=== PATIENT | male | born 1990 | race Hispanic/Latino ===

== ENCOUNTER 2017-10-27 21:20 | Emergency (ER) | payer OTHER, SELFPAY ==
[2017-10-27 22:36] LABS: #Eosinphils 0.4 thou/uL (0.0-0.7); #Monocytes 0.5 thou/uL (0.11-0.59); #Neutrophils 4.3 thou/uL (1.40-6.50); %Basophils 0.2 % (0.0-1.0); %Eosinophils 5.3 % (0.0-10.0); %Lymphocytes 36.9 % (21.0-51.0); %Monocytes 5.7 % (0.0-10.0); Hemoglobin 12.1 g/dL (14.0-18.0); Mean Corpuscular HGB CONC 34.1 g/dL (32.0-36.0); Mean Corpuscular Hemoglobin 29.7 pg (27.0-31.0); Platelet Count 236 thou/uL (130-400); RBC Distribution Width 12.8 % (11.5-14.5); Red Blood Cell (RBC) Count 4.07 mill/uL (4.70-6.10); White Blood Cell (WBC) Count 8.2 thou/uL (4.8-10.8)
--- NOTE | 2017-10-27 22:37 | CT ---
HEAD CT WITHOUT CONTRAST: 10/27/17 COMPARISON: 03/21/16 HISTORY: Seizures, found unconscious. TECHNIQUE: Serial axial CT imaging at 5 mm intervals from the vertex through the skull base without contrast. FINDINGS: The imaged paranasal sinuses/mastoid air cells are well aerated. No displaced calvarial fracture is n oted. There is no intracranial hemorrhage, midline shift, or mass effect. IMPRESSION: No acute finding - stable head CT. If there is clinical concern for a seizure focus, a followup brain MRI is recommended. POS: [facility]
[2017-10-27 22:49] LABS: Glucose 128 mg/dL (70-105)
[2017-10-27 22:53] LABS: ALT (SGPT) 22 U/L (8-55); AST (SGOT) 23 U/L (5-34); Albumin 4.5 g/dL (3.5-5.0); Alkaline Phosphatase 103 U/L (40-150); Anion Gap 12 mmol/L (10-20); BUN (Urea Nitrogen) 17 mg/dL (8.9-20.6); Bilirubin, Total 0.2 mg/dL (0.2-1.2); CK (CPK) 121 U/L (30-200); Calc. Creatinine Clearance 0 mL/min (70-130); Calcium 9.5 mg/dL (7.8-10.44); Carbamazepine-Tegretol 4.2 ug/mL (4.0-12.0); Carbon Dioxide 26 mmol/L (22-29); Chloride 107 mmol/L (98-107); Estimated GFR-MDRD 79; Magnesium 2.2 mg/dL (1.6-2.6); Potassium 3.5 mmol/L (3.5-5.1); Protein, Total 7.5 g/dL (6.0-8.3); Sodium 141 mmol/L (136-145)
== END 2017-10-27 23:45 | disposition home or self-care (01) ==
LOC: ERS 21:20
DX: G40.909 Epilepsy, unspecified, not intractable, without status epilepticus (principal); F31.9 Bipolar disorder, unspecified; Z79.899 Other long term (current) drug therapy
CPT/HCPCS: 70450; 80053; 80156; 80178; 82550; 83735; 84443; 85025; 93005; 96360

== ENCOUNTER 2017-12-29 19:31 | Emergency (ER) | payer OTHER, SELFPAY | END 2017-12-29 21:44 | disposition home or self-care (01) | LOC: ERS 19:31 | DX: S60.222A Contusion of left hand, initial encounter (principal); F31.9 Bipolar disorder, unspecified; X58.XXXA Exposure to other specified factors, initial encounter | CPT/HCPCS: 99283 ==

== ENCOUNTER 2018-05-07 19:01 | Emergency (ER) | payer SELFPAY ==
[2018-05-07 19:43] LABS: Bilirubin Negative (Negative); Blood, Urine Moderate (Negative); Clarity CLEAR (Clear); Glucose, Urine (Dipstick) Negative (Negative); Leukocyte Negative (Negative); Nitrite Negative (Negative); Protein, Urine (Dipstick) Negative (Neg-Trace); Specific Gravity, Urine 1.009 (1.002-1.036); pH, Urine 6.5 (5.0-9.0)
[2018-05-07 19:46] LABS: Bacteria/HPF None Seen HPF (None Seen); Hyaline Casts/LPF 0-3 HYALINE CAST LPF (0-3 Hyaline); Pathc Cast-AUWi Flag 0.14 (0-2.49); Squamous Epithelial None Seen HPF (0-3); WBC/HPF None Seen HPF (0-3)
[2018-05-07 20:26] LABS: #Eosinphils 0.3 thou/uL (0.0-0.7); #Lymphocytes 2.7 thou/uL (1.20-3.40); #Monocytes 0.4 thou/uL (0.11-0.59); #Neutrophils 4.8 thou/uL (1.40-6.50); %Basophils 0.4 % (0.0-1.0); %Eosinophils 3.6 % (0.0-10.0); %Lymphocytes 32.9 % (21.0-51.0); Hemoglobin 12.3 g/dL (14.0-18.0); Mean Corpuscular HGB CONC 31.9 g/dL (32.0-36.0); Mean Corpuscular Hemoglobin 27.8 pg (27.0-31.0); Mean Corpuscular Volume 87.3 fL (78.0-98.0); Mean Platelet Volume 7.6 fL (7.4-10.4); Platelet Count 244 thou/uL (130-400); RBC Distribution Width 12.9 % (11.5-14.5); Red Blood Cell (RBC) Count 4.42 mill/uL (4.70-6.10); White Blood Cell (WBC) Count 8.3 thou/uL (4.8-10.8)
[2018-05-07 20:46] LABS: ALT (SGPT) 13 U/L (8-55); AST (SGOT) 21 U/L (5-34); Albumin 4.4 g/dL (3.5-5.0); Alkaline Phosphatase 95 U/L (40-150); Anion Gap 12 mmol/L (10-20); BUN (Urea Nitrogen) 11 mg/dL (8.9-20.6); Bilirubin, Total 0.7 mg/dL (0.2-1.2); Calc. Creatinine Clearance 0 mL/min (70-130); Calcium 9.9 mg/dL (7.8-10.44); Carbon Dioxide 27 mmol/L (22-29); Chloride 107 mmol/L (98-107); Estimated GFR-MDRD 83; Glucose 102 mg/dL (70-105); Potassium 3.7 mmol/L (3.5-5.1); Protein, Total 7.4 g/dL (6.0-8.3); Sodium 142 mmol/L (136-145)
--- NOTE | 2018-05-07 21:15 | CT ---
CT ABDOMEN AND PELVIS WITHOUT CONTRAST: INDICATIONS: Bilateral flank pain for one week. COMPARISON: Prior noncontrast CT of the abdomen and pelvis, dated 11/03/2016. FINDINGS: The lung bases are clear. Unopacified liver, spleen, pancreas, adrenal glands, and kidneys appear wi thin normal limits. No hydronephrosis is evident. There is a retroaortic left renal vein. There is a normal appendix in the right lower quadrant. There is a mild amount of retained stool wit hin the colon. The bladder is partially decompressed. No definite acute osseous abnormality is evid ent. IMPRESSION: 1. Mild amount of retained stool within the colon. 2. No renal or ureteral calculus demonstrated. POS: [facility]
[2018-05-07] MEDS ORDERED: Magnesium Citrate 300 ML BOT ONE ×2 (22:00→22:33)
[2018-05-07] MEDS ORDERED: Ketorolac Tromethamine 60 MG/2 ML VIAL ONE (22:01)
[2018-05-07] MEDS ORDERED: Magnesium Citrate 300 ML BOT PO SCH (22:15)
== END 2018-05-07 22:38 | disposition home or self-care (01) ==
LOC: ERS 19:01
DX: K59.00 Constipation, unspecified (principal); R31.9 Hematuria, unspecified; F31.9 Bipolar disorder, unspecified; Z79.899 Other long term (current) drug therapy; Z87.891 Personal history of nicotine dependence
CPT/HCPCS: 36415; 74176; 80053; 81003; 81015; 85025; 96372; J1885

== ENCOUNTER 2019-11-08 00:57 | Observation (INO) | payer OTHER, SELFPAY ==
[2019-11-08] MEDS ORDERED: Ondansetron PF 4 MG/2 ML Vial IVP PRN (02:29)
[2019-11-08] MEDS ORDERED: Sodium Chloride 0.9% (PF) 10 ML VIAL FS PRN (02:35)
--- NOTE | 2019-11-08 03:03 | HP ---
REASON FOR ADMISSION: Hematemesis. HISTORY OF PRESENT ILLNESS: This is a 29-year-old male patient, who was at the [employer] eating dinner and started choking on his food. He then had multiple episodes of vomiting and at some point, he vomited bright red blood, moderate amount. He only had one isolated episode. After that, he was seen at an outside ER, where he underwent x-rays to rule out any upper airway obstruction. Subsequently transferred to us. Currently appears to be doing very well. Does not report any distress. PAST MEDICAL HISTORY: 1. Bipolar disorder. 2. Seizures, noncompliant with his medication. 3. Esophageal strictures. SOCIAL HISTORY: Continues to smoke and drink alcohol, but denies being an alcoholic. ALLERGIES: NO NOTE OF ANY DRUG ALLERGY. FAMILY HISTORY: Negative for heart disease. REVIEW OF SYSTEMS: All systems reviewed except the above mentioned, found to be negative. PHYSICAL EXAMINATION: GENERAL: Awake, alert, and oriented. Does not appear in distress. VITAL SIGNS: His blood pressure is 105/67, heart rate of 43, and saturating 98% on room air. HEENT: Head is nontraumatic and normocephalic. Pupils equal and reactive. Extraocular movements are intact. Nonicteric sclerae. Well injected conjunctivae. Oral mucosa normal. Nasal mucosa normal. NECK: Supple. No adenopathy. No murmur. Thyroid is not palpable. Trachea is midline. No supraclavicular lymphadenopathy. HEART: S1 and S2. Regular. No murmur. No gallops. No friction rubs. No displacement of PMI. LUNGS: Clear to auscultation bilaterally. No wheezes, rhonchi, or crackles. ABDOMEN: Bowel sounds are positive. Nontender abdomen. No hepatosplenomegaly. EXTREMITIES: No lower extremity edema. No cyanosis. NEURO: Cranial nerves 2 through 12 within normal limits. Normal motor function. Normal sensory function. Normal reflexes. LABORATORY DATA: Blood work shows WBC of 7, hemoglobin of 11.5, and platelets of 229. INR 1. Sodium 141, potassium 3.7, bicarb of 25, and BUN of 20. A soft tissue neck CT shows mild thickening of the aryepiglottic folds at the base of the epiglottis. The epiglottis itself is not thick and no foreign bodies were seen. Chest x-ray shows no acute disease. Abdominal x-ray as per my read shows nonspecific gas pattern. ASSESSMENT AND PLAN: This is a 29-year-old male patient, who is known to have history of strictures and every now and then, he feels that the food is getting stuck behind his chest. He needs to drink water to relief himself. He had an episode of dysphagia followed by multiple episodes of vomiting and subsequently vomited a moderate amount quantity of red blood, being admitted for further monitoring. The patient most likely had a Evi-Centeno tear due to his multiple episodes of vomiting. He did not have any further episodes of hematemesis, he will be kept n.p.o. on IV fluids on IV Protonix twice a day. Awaiting GI evaluation. We will recheck his labs in the morning. For deep venous thrombosis prophylaxis, he will be on sequential compression devices. Job ID: [id number]
[2019-11-08 03:11] VITALS: BMI 23.5
[2019-11-08] MEDS: Sodium Chloride 0.9% 1,000 ML IV SCH ×2 (03:54→15:39)
[2019-11-08 05:44] LABS: #Eosinphils 0.3 thou/uL (0.0-0.7); #Lymphocytes 2.8 thou/uL (1.20-3.40); #Monocytes 0.6 thou/uL (0.11-0.59); #Neutrophils 3.4 thou/uL (1.40-6.50); %Basophils 0.7 % (0.0-1.0); %Eosinophils 4.4 % (0.0-10.0); %Lymphocytes 39.1 % (21.0-51.0); %Monocytes 8.1 % (0.0-10.0); %Neutrophils 47.6 % (42.0-75.0); Hemoglobin 11.3 g/dL (14.0-18.0); Mean Corpuscular HGB CONC 32.3 g/dL (32.0-36.0); Mean Corpuscular Hemoglobin 28.5 pg (27.0-31.0); Mean Corpuscular Volume 88.3 fL (78.0-98.0); Mean Platelet Volume 7.7 fL (7.4-10.4); Platelet Count 218 thou/uL (130-400); RBC Distribution Width 12.3 % (11.5-14.5); Red Blood Cell (RBC) Count 3.97 mill/uL (4.70-6.10); White Blood Cell (WBC) Count 7.1 thou/uL (4.8-10.8)
--- NOTE | 2019-11-08 09:47 | PDOC.EVN ---
Event Note - Event Note Event Note: Patient was seen and examined this morning without further complaints from last night. He denies any further hematemesis. He has not had a bowel movement since admission to the hospital. Patient states that he has had an issue with swallowing for many years and was told that he has a small esophagus although he has never had an EGD completed. He states that he often gets choked on food and will have to take water and to help swallow down. Currently awaiting GI consult.
[2019-11-08] MEDS ORDERED: Lidocaine 1% PF 5 ML VIAL ONE (10:02)
[2019-11-08] MEDS ORDERED: PROPOFOL 200 MG/20 ML VIAL ONE (10:02)
[2019-11-08] MEDS ORDERED: EPHEDRINE 25 MG/5 ML SYRINGE ONE (10:02)
[2019-11-08] MEDS ORDERED: Pantoprazole 40 MG VIAL IVP SCH ×3 (11:00→21:00)
[2019-11-08] MEDS ORDERED: Fentanyl 100 MCG/2 ML VIAL ONE ×2 (13:01→13:02)
[2019-11-08] MEDS ORDERED: Midazolam HCl 2 mg/2 ml Vial ONE (13:46)
[2019-11-08 13:55] LABS: SARS-CoV-2 MS2 Positive; SARS-CoV-2 N Gene Negative; SARS-CoV-2 S Gene Negative; SARS-CoV-2 by NAA Not Detected (NotDetected); SARS-CoV-2 orf1ab Negative
--- NOTE | 2019-11-08 16:13 | CON ---
DATE OF CONSULTATION: 11/08/2019 REASON FOR CONSULTATION: Hematemesis, dysphagia. CONSULTING PROVIDER: Ellen Baker MD HISTORY OF PRESENT ILLNESS: The patient is a 29-year-old male with past medical history of bipolar disorder, seizure disorder, and questionable esophageal stricture, presenting with complaints of dysphagia and hematemesis. The patient states that he has been having intermittent episodes of dysphagia for the last 2 years, characterized as the sensation of food would be getting stuck at the lower midchest as well as at the sternal notch. This would occur primarily with solid foods, not liquids and would occur approximately 2 times per day over the last 3 to 4 months. He has not been placed on any medications for this in the past nor has he seen any healthcare professional or had an upper endoscopy for this particular condition. In any case, the patient was in his usual state of health until yesterday evening when while eating [employer] he again experienced acute onset of dysphagia, but at this point, it seemed more like a food impaction where the food got stuck at the lower chest and he was unable to bring it back up. He subsequently drank a large amount of soda, which prompted him to vomit, in which case caused repeated episodes of emesis over the next 20 to 30 minutes. After repeated episodes of vomiting/retching, he did experience the vomiting of bright red blood, characterized as approximately 1/2 to 1 cupful. He was subsequently seen at the [facility] for evaluation. Upon evaluation of his hemoglobin and hematocrit, it seemed stable when compared to baseline nor did he have any hemodynamic instability. Subsequently, the patient was transferred to [facility] for further evaluation. Today, the patient states that he is doing well without problems or complaints overnight. He does admit to seasonal allergies and increased GERD symptoms, although they do crumbs seldomly around 3 times per month. When he does have acid reflux symptoms, he characterizes them as substernal pyrosis, regurgitation, an acid taste in his mouth, eructation, and sometimes midepigastric abdominal pain. Again, the patient has not taken any medications for this particular condition due to the seldom nature of these occurrences. Currently, he denies any hematochezia, melena, fevers, chills, odynophagia, weight loss, diarrhea, or constipation. REVIEW OF SYSTEMS: A 10-category review of systems was obtained with all responses negative except for the pertinent positives as listed in HPI. PAST MEDICAL HISTORY: As per HPI. PAST SURGICAL HISTORY: None. FAMILY HISTORY: Denies any GI malignancies. SOCIAL HISTORY: Smokes around 1/2 to 1 pack per day in addition to drinking 1 to 2 beers every 2 to 3 days, but denies any illicit drug use. OUTPATIENT MEDICATIONS: None. ALLERGIES: NO KNOWN DRUG ALLERGIES. PHYSICAL EXAMINATION: VITAL SIGNS: Temperature 97.8, pulse 67, blood pressure 108/75, respiratory rate 16, and saturating 100% on room air. GENERAL: The patient was lying in bed, in no acute distress. Alert and oriented x4. HEENT: Normocephalic and atraumatic. NECK: Supple. No JVD or scleral icterus noted. CARDIOVASCULAR: Regular rate and rhythm with no discernable murmurs, gallops, or rubs. RESPIRATORY: Clear to auscultation bilaterally with no discernable wheezes or rales. ABDOMEN: Normoactive bowel sounds. Soft and nondistended. Mild tenderness to palpation in the midepigastric region only. EXTREMITIES: No cyanosis, clubbing, or edema. LABORATORY DATA: CBC with a white blood cell count of 7.1, hemoglobin 11.3, hematocrit 35.1, and platelets 218. Chemistry with a sodium of 141, potassium 3.7, chloride 105, CO2 of 25, BUN 20, creatinine 1.05, and glucose 104. AST 24, ALT 18, alkaline phosphatase 70, total bilirubin 0.7, and albumin 4.4. IMAGING DATA: Abdominal x-ray/KUB was obtained on 11/07/2019, which confirmed the placement of an NG tube 6 cm above the GE junction. A CT scan of the soft tissue/neck was obtained on 11/07/2019, which showed mild thickening of the aryepiglottic folds at the base of the epiglottis, but no evidence of foreign bodies. ASSESSMENT AND PLAN: The patient is a 29-year-old male with past medical history of bipolar disorder, seizure disorder, and chronic dysphagia, presenting with repeat episode of dysphagia, concerning for food impaction, resulting in retching/vomiting, generating hematemesis. 1. Dysphagia: The patient is presenting with a chronic history of dysphagia, characterized as the sensation of food getting stuck at the level of the mid lower chest as well at the sternal notch, that would occur with solid food ingestion only. This will occur around 2 times per day, but has relieved itself spontaneously up until now. However, last night, the patient had a repeat episode of dysphagia while eating [employer], that did not immediately resolve. The patient drank soda in order to relieve the obstruction and in the process forced/induced vomiting, which then brought up the esophageal food bolus. At this time, the etiology of his dysphagia is unclear, but given his current clinical history, the differential could include esophageal stricture, gastroesophageal reflux disease, eosinophilic esophagitis, esophageal dysmotility, and/or gastrointestinal neoplasm (less likely). Recommendations: a. Would plan for esophagogastroduodenoscopy later today for intraluminal evaluation. b. Recommend adequate chewing of food before swallowing. c. Would place the patient on pantoprazole 40 mg daily in light of possible gastroesophageal reflux disease, creating dysphagia. d. Further recommendations to follow upper endoscopy. 2. Hematemesis: The patient is presenting with acute onset of hematemesis after multiple episodes of vomiting/retching to relieve a food bolus impaction. He has not had any further episodes of hematemesis since then nor has he had a significant decrease in his hemoglobin and hematocrit or hemodynamic instability to indicate active gastrointestinal blood loss. Based on the clinical history, this seems most in line with a Evi-Centeno tear, but we will confirm on upper endoscopy today. Recommendations: Would proceed with upper endoscopy for further evaluation. We will continue to follow. Please call with any questions. Job ID: [id number]
--- NOTE | 2019-11-08 17:25 | OP ---
DATE OF PROCEDURE: 11/08/2019 PROCEDURE PERFORMED: Esophagogastroduodenoscopy with biopsy. INDICATIONS FOR PROCEDURE: Hematemesis, dysphagia. DESCRIPTION OF PROCEDURE: After the risks and benefits of the procedure were explained to the patient including risks of bleeding, infection, perforation, reactions to anesthesia, aspiration, and/or pain, informed consent was obtained. The patient was then taken to the endoscopy suite where he was maneuvered into the left lateral decubitus position followed by introduction of deep sedation via propofol and anesthesia support. Once adequate sedation was achieved, the standard gastroscope was introduced into the mouth with intubation of the esophagus, stomach, and the proximal small intestines with the findings listed below. The patient tolerated the procedure well with no immediate perioperative complications. On conclusion of the procedure, all equipment was removed from the patient and he was transferred to PACU in satisfactory condition. FINDINGS: Esophagus: Mild appearance of circular rings as well as longitudinal furrows were seen along the entire length of the esophagus from the proximal, mid, and into the distal esophagus. However, there was no evidence of overt stricture or stenoses seen. At the gastroesophageal junction, a 7- to 8-mm linear erosion was seen extending proximally from the GE junction, consistent with reflux esophagitis. Again, there was no stricture or stenosis at the GE junction itself. Otherwise, there was no evidence of tear or anything associated with active/recent bleeding. There was no evidence of ulcerations, mass lesions, or even Evi-Centeno tear. Stomach: Normal-appearing mucosa was seen in the gastric cardia, fundus, body, greater curvature, antrum, and incisura. There was no evidence of erosions, ulcerations, mass lesions, or active/recent bleeding. Duodenum: Normal-appearing mucosa was seen in both the duodenal bulb and second portion of the duodenum. There was no evidence of erosions, ulcerations, mass lesions, or active/recent bleeding. IMPRESSION: 1. LA grade B reflux-mediated erosive esophagitis. 2. Longitudinal furrows and circular rings seen throughout the esophagus, concerning for eosinophilic esophagitis, status post biopsies in both the proximal and distal esophagus. 3. Otherwise normal upper endoscopy. RECOMMENDATIONS: 1. We will follow up on the biopsy results with further treatment dictated by the pathology report. 2. Would continue the patient on PPI 40 mg b.i.d. for the next 30 days, then decrease to 40 mg daily in light of erosive esophagitis. 3. Encouraged adequate chewing of food before ingestion. 4. We will avoid any NSAIDs. 5. Given the lack of evidence of bleeding and patent esophagus, the patient can be discharged to home with followup in the GI clinic in 3 weeks. Please call with any questions. We will sign off at this time. Job ID: [id number]
[2019-11-08 17:38] VITALS: TEMP 98.2
[2019-11-08 17:52] VITALS: BP 102/62
--- NOTE | 2019-11-08 20:38 | DIS ---
DATE OF ADMISSION: 11/08/2019 DATE OF DISCHARGE: 11/08/2019 DISCHARGE DISPOSITION/FOLLOWUP: The patient was discharged home. The patient was seen and examined on the day of discharge. Denies any new complaints and he is to follow up with his primary pediatric care coordinator in this following week and also with Dr. Amaya, Gastroenterology. INPATIENT CONSULT: Gastroenterology. CLINICAL COURSE: The patient is a 29-year-old male with history of dysphagia, bipolar disorder, seizures, esophageal strictures, and history of being noncompliant with medication. Last night, he was eating dinner at [employer] and he started to choke on his food. He had multiple episodes of vomiting and at some point, he vomited bright red blood in a moderate amount. There was only the one isolated incident. He was seen in an outside ER where he underwent x-rays to rule out upper airway obstruction and was transferred to the [facility] facility. While here in the hospital, gastroenterology was consulted and they performed EGD on him. Biopsy was completed during the EGD and the patient was encouraged to adequately chew food before ingestion and to avoid NSAIDs. FINAL DIAGNOSES: 1. Esophagitis. 2. Bipolar disorder. DISCHARGE MEDICATIONS: Protonix 40 mg p.o. b.i.d. DISCHARGE INSTRUCTIONS: The patient was encouraged to thoroughly chew food before swallowing and to follow up with his primary care provider and gastroenterology. Total time coordinating the discharge of the patient was 25 minutes. The patient was discussed with Dr. Goodrich. Job ID: [id number] [facility]
== END 2019-11-08 18:45 | disposition home or self-care (01) ==
LOC: ERS 00:57 → T4-B 01:56
PROVIDERS: ADMIT Internal Medicine; ATTEND Internal Medicine
PROC: 0DB58ZX Excision of Esophagus, Via Natural or Artificial Opening Endoscopic, Diagnostic (ICD-10-PCS; principal; 2019-11-08)
DX: K21.0 Gastro-esophageal reflux disease with esophagitis (principal); K22.2 Esophageal obstruction; F17.210 Nicotine dependence, cigarettes, uncomplicated; F31.9 Bipolar disorder, unspecified; G40.909 Epilepsy, unspecified, not intractable, without status epilepticus; Z20.828 Contact with and (suspected) exposure to other viral communicable diseases; Z91.14 Patient's other noncompliance with medication regimen
CPT/HCPCS: 36415; 85025; 87635; 88305; 88312; 88313; 96361; 96374; 99285; C9113; G0378; J2250; J2704; J3010; U0003

== ENCOUNTER 2024-01-23 19:34 | Emergency (ER) | payer SELFPAY ==
[2024-01-23] MEDS ORDERED: Acetaminophen 500 MG TAB ONE (20:04)
== END 2024-01-23 21:23 | disposition home or self-care (01) ==
LOC: ERS 19:34
DX: S06.0X0A Concussion without loss of consciousness, initial encounter (principal); V49.9XXA Car occupant (driver) (passenger) injured in unspecified traffic accident, initial encounter; F17.200 Nicotine dependence, unspecified, uncomplicated
CPT/HCPCS: 70450; 72125; 93005